=== PATIENT | male | born 1975 | race Caucasian/White ===

== ENCOUNTER 2018-04-16 12:37 | Inpatient (IN) | payer SELFPAY ==
[~2018-04-16 12:37] MED LIST: Ondansetron HCl/PF 4 MG/2 ML Vial ONE; PHENYLEPHRINE-NS 100 MCG/ML 10 ML SYRINGE ONE
--- NOTE | 2018-04-16 13:32 | RAD ---
3 VIEWS LEFT ANKLE: Date: 04/16/18 INDICATION: Slipped and fell with left ankle injury. COMPARISON: None. FINDINGS: There is an obliquely oriented fracture involving the distal fibular shaft and lateral malleolus with displacement of the distal fracture fragment posterolaterally 1/2 shaft width. There is a comminuted, mildly angulated, mildly displaced medial malleolar fracture with the distal f racture fragment displaced slightly laterally and posteriorly one cortex width. There is a posterior malleolar fracture fragment involving less than 25% of the tibial plafond lpn private duty iorly, but displaced superiorly and posteriorly approximately 6.0 mm. The talar dome appears within normal limits. There is some periosteal thickening involving the mid sh aft tibia which is incompletely evaluated on the current exam and may reflect sequelae of remote trau ma. Dedicated radiographs of the left foreleg are recommended. IMPRESSION: Mildly displaced trimalleolar ankle fracture. POS: [facility]
[2018-04-16 14:17] LABS: #Basophils 0.1 thou/uL (0.0-0.2); #Eosinphils 0.4 thou/uL (0.0-0.7); #Lymphocytes 1.4 thou/uL (1.20-3.40); #Monocytes 0.8 thou/uL (0.11-0.59); #Neutrophils 7.2 thou/uL (1.40-6.50); %Basophils 0.9 % (0.0-1.0); %Eosinophils 4.3 % (0.0-10.0); %Lymphocytes 13.9 % (21.0-51.0); %Neutrophils 72.9 % (42.0-75.0); Hemoglobin 16.4 g/dL (14.0-18.0); Mean Corpuscular HGB CONC 33.4 g/dL (32.0-36.0); Mean Corpuscular Hemoglobin 30.4 pg (27.0-31.0); Mean Corpuscular Volume 91.1 fL (78.0-98.0); Mean Platelet Volume 7.8 fL (7.4-10.4); Platelet Count 222 thou/uL (130-400); RBC Distribution Width 12.6 % (11.5-14.5); White Blood Cell (WBC) Count 9.8 thou/uL (4.8-10.8)
[2018-04-16 14:42] LABS: ALT (SGPT) 53 U/L (8-55); AST (SGOT) 38 U/L (5-34); Albumin 4.2 g/dL (3.5-5.0); Alkaline Phosphatase 67 U/L (40-150); Anion Gap 11 mmol/L (10-20); BUN (Urea Nitrogen) 14 mg/dL (8.9-20.6); Bilirubin, Total 0.4 mg/dL (0.2-1.2); Calc. Creatinine Clearance 0 mL/min (70-130); Calcium 9.3 mg/dL (7.8-10.44); Carbon Dioxide 27 mmol/L (22-29); Chloride 104 mmol/L (98-107); Estimated GFR-MDRD 87; Globulin 2.6 g/dL (2.4-3.5); Glucose 90 mg/dL (70-105); Protein, Total 6.8 g/dL (6.0-8.3); Sodium 138 mmol/L (136-145)
[2018-04-16] MEDS ORDERED: Ketorolac Tromethamine 30 MG/ML VIAL ONE (15:43)
[2018-04-16] MEDS ORDERED: Fentanyl 100 MCG/2 ML VIAL ONE ×3 (16:04→17:06)
[2018-04-16] MEDS ORDERED: Neomycin-Polymyxin 1 ML AMP ONE (16:24)
--- NOTE | 2018-04-16 16:27 | HP ---
DATE OF ADMISSION: 04/16/2018 REQUESTING PHYSICIAN: Dr. Gutiérrez. ATTENDING SURGEON: Dr. Kahn. CONSULTATIONS: Orthopedics, Dr. Muhammad. HISTORY OF PRESENT ILLNESS: The patient is a 42-year-old man who reportedly fell at a rest [employer] today, twisting his left ankle. The patient had immediate pain and felt a snap, EMS was martin d. The patient was brought to the Emergency Department, evaluated, examined and noted to have a left trimalleolar fracture. The patient had no loss of consciousness, did not strike his head. Denies n robert pain and had no syncopal symptoms prior to his fall. He just notes that the floor was very slipp kamla. ALLERGIES: None. CURRENT MEDICATIONS: Aspirin 81 mg and atorvastatin. PAST MEDICAL HISTORY: Hyperlipidemia, L3 burst fracture with resulting foot drop on his left side, o steogenesis imperfecta. PAST SURGICAL HISTORY: Spinal surgery for his burst fracture. FAMILY MEDICAL HISTORY: Hypertension. SOCIAL HISTORY: The patient lives at home with family. He denies drug or tobacco use and drinks 1-2 times per month. 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 REVIEW OF SYSTEMS: Ten-point review of system is negative, unless otherwise stated. PHYSICAL EXAMINATION: VITAL SIGNS: Blood pressure 141/102, heart rate 86, respirations 20, oxygen saturation 99% on room a ir, temperature is 98.4. GENERAL: The patient is resting comfortably in bed. He is awake, alert, and oriented x3. Orlando c laura scale is 15. HEENT: Head is normocephalic, atraumatic. Eyes: Extraocular motion intact. PERRLA bilaterally. E ars are atraumatic without discharge. Nose atraumatic without discharge. Oropharynx is clear. NECK: Nontender. Trachea is midline. No JVD. CHEST: Clear to auscultation with good inspiratory and expiratory effort. HEART: Regular rate and rhythm. ABDOMEN: Soft, flat, and nontender with active bowel sounds. Pelvis is stable. EXTREMITIES: Bilateral upper extremities are neurovascularly intact with pulses of 2+ and capillary refill less than 3 seconds. Right lower extremity is also unremarkable. Left lower extremity is cur rently splinted in a posterior splint and has good capillary refill. By patient report, his sensatio n has not changed from baseline. BACK: Nontender and atraumatic. LABORATORY DATA: White blood cell count 9.8, hemoglobin 16.4, hematocrit 49.2, platelets 222. Sodiu m 138, potassium 4.0, chloride 104, CO2 of 27, BUN 14, creatinine 0.94, glucose 90. LFTs are unremar kable. RADIOGRAPHS: Views of the left ankle show a mildly displaced trimalleolar fracture. ASSESSMENT AND PLAN: 1. Status post ground level fall. 2. Left trimalleolar fracture. 3. Pain secondary to acute trauma. 4. History of hyperlipidemia. 5. History of osteogenesis imperfecta. 6. 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 Plan will be to admit the patient to the surgical floor for pain control, will remain n.p.o., pulmona ry toilet, gastritis, mechanical deep venous thrombosis prophylaxis per ER, discussion with Dr. Barrios er. The plan will be to take the patient to the operating room later this afternoon. The evaluation , examination, radiographic and laboratory findings will be discussed with Dr. Kahn after this dic tation.
[2018-04-16] MEDS ORDERED: CEFAZOLIN/Water 2 GM/20 ML SYRINGE ONE (16:45)
[2018-04-16] MEDS ORDERED: Midazolam HCl 2 mg/2 ml Vial ONE ×2 (16:45→17:05)
[2018-04-16] MEDS ORDERED: Bupivacaine HCl 0.5%/Epinephrine 1:200,000/PF 30 ml Vial ONE (18:06)
[2018-04-16] MEDS ORDERED: diphenhydrAMINE 25 MG CAP PO PRN (18:17)
[2018-04-16] MEDS ORDERED: Promethazine HCl 25 MG/ML VIAL SLOW IVP PRN (18:17)
[2018-04-16] MEDS ORDERED: diphenhydrAMINE 50 MG/ML VIAL IM PRN (18:17)
[2018-04-16] MEDS ORDERED: Ketorolac Tromethamine 30 MG/ML VIAL IVP PRN (18:17)
[2018-04-16] MEDS ORDERED: Ondansetron HCl/PF 4 MG/2 ML Vial IVP PRN ×3 (18:17→22:51)
[2018-04-16] MEDS ORDERED: Zolpidem Tartrate 5 MG TAB PO PRN (18:17)
[2018-04-16] MEDS ORDERED: HYDROmorphone 2 MG/ML VIAL SLOW IVP PRN (18:17)
[2018-04-16] MEDS ORDERED: Promethazine HCl 25 MG/ML VIAL IM PRN ×4 (18:17→22:51)
[2018-04-16] MEDS ORDERED: diphenhydrAMINE 50 MG/ML VIAL IVP PRN (18:17)
[2018-04-16] MEDS ORDERED: HYDROmorphone 10 mg/100 ml CADD IVPB PRN (18:17)
[2018-04-16] MEDS ORDERED: Naloxone HCl 0.4 mg/ml Vial IV PRN (18:17)
[2018-04-16] MEDS ORDERED: Communication Order-Pharmacy FS SCH (18:30)
[2018-04-16] MEDS ORDERED: Acetaminophen 325 MG TAB PO PRN (18:43)
[2018-04-16] MEDS ORDERED: traMADol HCl 50 MG TAB PO PRN ×3 (18:43→22:51)
[2018-04-16] MEDS ORDERED: HYDROcodone/Acetaminophen 10/325 mg Tablet PO PRN ×2 (18:43)
[2018-04-16] MEDS ORDERED: RENALLY ADJUST ALL ANTIBIOTICS FS PRN (18:45)
--- NOTE | 2018-04-16 18:57 | RAD ---
INTRAOPERATIVE FLUOROSCOPY 04/16/18 HISTORY: ORIF. FINDINGS: Intraprocedural fluoroscopy is performed for Dr. Portillo. Three images are submitted for interpretat ion. There is evidence of internal fixation hardware along the medial malleolus, distal fibula and lateral malleolus. Alignment is near anatomic. EXPOSURE: 27 seconds. 1.73 mGy. IMPRESSION: Fluoroscopy as above. POS: [facility]
[2018-04-16] MEDS ORDERED: Dextrose 5% in Water 1,000 ML IV PRN (22:51)
[2018-04-16] MEDS ORDERED: Ondansetron ODT 4 MG TAB PO PRN (22:51)
[2018-04-16] MEDS ORDERED: Sodium Chloride 0.9% 1,000 ML IV SCH (22:51)
[2018-04-16] MEDS ORDERED: hydrALAZINE 20 MG/ML VIAL SLOW IVP PRN (22:51)
[2018-04-16] MEDS ORDERED: Dextrose 50% Abboject 50 ML SYRINGE SLOW IVP PRN (22:51)
[2018-04-17] MEDS: CEFAZOLIN/Water 2 GM/20 ML SYRINGE SLOW IVP SCH ×2 (00:29→09:18)
[2018-04-17] MEDS: Ketorolac Tromethamine 30 MG/ML VIAL IVP SCH ×4 (00:29→05:53)
[2018-04-17] MEDS: Sodium Chloride 0.9% 100 ML IV SCH ×4 (00:51→00:58)
[2018-04-17] MEDS: Aspirin 81 mg Enteric Coated Tablet PO SCH ×2 (00:53→09:18)
[2018-04-17] MEDS: Acetaminophen 1,000 MG in Premix Bag 1 BAG IVPB SCH ×2 (00:56→05:16)
[2018-04-17] MEDS: Ibuprofen 800 MG TAB PO SCH ×2 (00:56→09:18)
--- NOTE | 2018-04-17 02:57 | OP ---
DATE OF OPERATION: 04/16/2018 PREOPERATIVE DIAGNOSIS: Displaced trimalleolar fracture of the left ankle. POSTOPERATIVE DIAGNOSIS: Displaced trimalleolar fracture of the left ankle. PROCEDURE: Open reduction and internal fixation of trimalleolar fracture, left ankle. SURGEON: Carlito Muhammad M.D. ANESTHESIA: General. TECHNIQUE: The patient was given preoperative IV antibiotics, taken to the operating room, placed in supine position. Satisfactory general anesthesia was performed. The left foot, ankle and lower leg were sterilely prepped and draped in usual fashion. After exsanguination, tourniquet at proximal le ft calf was raised 200 mmHg. A longitudinal incision was made over the lateral aspect of the ankle o hiram the distal fibula approximately 4-1/2 inches in length. Blunt and sharp dissection was made down to the lateral aspect of the fibula. There was comminuted oblique fracture of the distal shaft of t he fibula. It was reduced, held reduced with a bone clamp and initially internally fixed with a 3.5 cortical screw in a lag fashion. A 4-hole distal Synthe[employer] fibular plate was then placed initially usi ng a 3.5 cortical screw in the shaft and then using 2.7 locking screws distally and also 2 more in th e shaft. One of the holes was left empty since it was brought over the comminuted fracture. This wa s all performed under fluoroscopic visualization using the C-arm showed that the ankle joint was line d up well. The medial malleolar fracture was internally fixed using a 2 cm incision and using two 4. 0 cannulated screws. The posterior malleolar fracture was lined up well and did not require internal fixation. The wounds were then copiously irrigated with antibiotic solution and closed using 0 Vicr yl for the fat and subcutaneous tissue, and skin was closed with 3-0 Rapide. The wounds were then in filtrated with a total of 30 mL of 0.5% Marcaine with epinephrine. Sterile dressing was applied. Th e patient was placed in a boot. The tourniquet was released. The patient was awakened, extubated, a nd transferred to the recovery room in stable condition. ESTIMATED BLOOD LOSS: 20 mL. COMPLICATIONS: None.
[2018-04-17 03:52] VITALS: BMI 28.5
[2018-04-17 06:06] LABS: #Basophils 0.1 thou/uL (0.0-0.2); #Eosinphils 0.5 thou/uL (0.0-0.7); #Lymphocytes 1.5 thou/uL (1.20-3.40); %Basophils 0.6 % (0.0-1.0); %Eosinophils 4.6 % (0.0-10.0); %Lymphocytes 15.1 % (21.0-51.0); %Neutrophils 69.6 % (42.0-75.0); Hemoglobin 15.4 g/dL (14.0-18.0); Mean Corpuscular HGB CONC 32.8 g/dL (32.0-36.0); Mean Corpuscular Hemoglobin 30.2 pg (27.0-31.0); Mean Corpuscular Volume 91.9 fL (78.0-98.0); Mean Platelet Volume 8.3 fL (7.4-10.4); Platelet Count 198 thou/uL (130-400); RBC Distribution Width 12.8 % (11.5-14.5)
[2018-04-17 06:15] LABS: ALT (SGPT) 37 U/L (8-55); AST (SGOT) 29 U/L (5-34); Albumin 3.5 g/dL (3.5-5.0); Alkaline Phosphatase 63 U/L (40-150); Anion Gap 8 mmol/L (10-20); BUN (Urea Nitrogen) 12 mg/dL (8.9-20.6); Bilirubin, Total 0.4 mg/dL (0.2-1.2); Calc. Creatinine Clearance 137 mL/min (70-130); Calcium 8.2 mg/dL (7.8-10.44); Carbon Dioxide 26 mmol/L (22-29); Chloride 108 mmol/L (98-107); Estimated GFR-MDRD 88; Globulin 2.2 g/dL (2.4-3.5); Glucose 94 mg/dL (70-105); Potassium 3.9 mmol/L (3.5-5.1); Protein, Total 5.7 g/dL (6.0-8.3); Sodium 138 mmol/L (136-145)
[2018-04-17 09:00] VITALS: TEMP 97.9
[2018-04-17] MEDS ORDERED: TETANUS AND DIPHTHERIA TOX/PF 0.5 ML DISP.SYRIN IM SCH (09:00)
--- NOTE | 2018-04-17 09:58 | PRG ---
DATE OF SERVICE: 04/17/2018 SUBJECTIVE: Postop day #01, trimalleolar fracture repair by Dr. Muhammad. Please see Eliecer Mendez's no mildred for full details. The patient is stable status post ankle fracture repair. Plans are for him to be discharged today. Follow up to be done by Orthopedics in [place].
--- NOTE | 2018-04-17 11:13 | DIS ---
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 PROCEDURES: On 04/16/2018, open reduction internal fixation of trimalleolar fracture, Dr. Muhammad, l eft ankle without complication. CONDITION AT DISCHARGE: Improved. STAFF: Dr. Kahn/. HOSPITAL COURSE: The patient's postop course was uneventful. Physical therapy works with him in ter ms of transfers and mobilizing with nonweightbearing to the left lower extremity. He was doing well and discharged to home. He will follow up in [place] for his further orthopedic care.
[2018-04-17 11:45] VITALS: BP 124/77
[2018-04-17] MEDS ORDERED: Acetaminophen 500 MG TAB PO SCH (12:00)
--- NOTE | 2018-04-17 16:59 | DIS ---
DATE OF ADMISSION: 04/16/2018 DATE OF DISCHARGE: 04/17/2018 HISTORY OF PRESENT ILLNESS: The patient is a 42-year-old white male, who slipped on a slick floor at a restaurant, twisted his left ankle, and had immediate pain and deformity in the ankle. The patien t was brought to the emergency room, which showed a displaced trimalleolar fracture of the left ankle . HOSPITAL COURSE: The patient was initially evaluated in the emergency room, found to have a displace d trimalleolar fracture. He was given perioperative IV antibiotics, taken to the operating room, and underwent open reduction and internal fixation of the left ankle. He was placed in a boot. He was instructed to be nonweightbearing. Physical therapy worked with the patient and he was able to indep endently get up out of bed and ambulate with crutches while being nonweightbearing on the left foot. The patient did not require any IV pain medication after surgery and had good pain control at the ti me of discharge. DISCHARGE DIAGNOSES: 1. Trimalleolar fracture, left ankle. 2. Hyperlipidemia. 3. History of osteogenesis imperfecta. 4. Status post burst fracture of L3 with resultant weakness in both lower extremities. PLAN: The patient should follow up with me or an orthopedist in [place] where he lives in 2 weeks . He and his were instructed on changing the dressing daily and clean the wound with either a s terile saline or hydrogen peroxide. When there is no drainage from the incisions, he can get them we t with shower. Again, him and his reminded multiple times for him to be nonweightbearing on the left foot to allow the fractures to heal. DISCHARGE MEDICATIONS: Naprosyn 550 mg twice a day with meals #60 with 2 refills, tramadol 50 mg 1-2 every 6 hours as needed for pain #90 with 2 refills.
[2018-04-18] MEDS ORDERED: Aspirin 81 mg Enteric Coated Tablet PO SCH (09:00)
[2018-04-18] MEDS ORDERED: Atorvastatin Calcium 20 MG TAB PO SCH (09:00)
== END 2018-04-17 12:03 | disposition home or self-care (01) | DRG 493 ==
LOC: ERS 12:37 → SDC 15:28 → SURG B 19:37
PROVIDERS: ADMIT Surgery; ATTEND Surgery
PROC: 0QSK04Z Reposition Left Fibula with Internal Fixation Device, Open Approach (ICD-10-PCS; principal; 2018-04-16)
PROC: 0QSH04Z Reposition Left Tibia with Internal Fixation Device, Open Approach (ICD-10-PCS; 2018-04-16)
DX: S82.852A Displaced trimalleolar fracture of left lower leg, initial encounter for closed fracture (principal); Q78.0 Osteogenesis imperfecta; E78.5 Hyperlipidemia, unspecified; S32.031S Stable burst fracture of third lumbar vertebra, sequela; X58.XXXS Exposure to other specified factors, sequela; M21.372 Foot drop, left foot; G62.9 Polyneuropathy, unspecified; W01.0XXA Fall on same level from slipping, tripping and stumbling without subsequent striking against object, initial encounter; Z79.899 Other long term (current) drug therapy; Z79.82 Long term (current) use of aspirin
CPT/HCPCS: 36415; 76001; 80053; 85025; 96374; C1713; C1769; G0390; G8978-GP-CJ; G8979-GP-CI; G8980-GP-CJ; J0670; J1885; J2250; J2405; J3010